=== PATIENT | male | born 1965 | race Caucasian/White ===

== ENCOUNTER 2019-06-15 12:27 | Emergency (ER) | payer OTHER ==
[2019-06-15 12:33] VITALS: BP 130/78; PULSE 109; RESP 18; TEMP 97.4
[2019-06-15] MEDS ORDERED: DIPH,PERTUS(ACELL)TETVAC-LF 0.5 ML VIAL IM ONE (13:12)
--- NOTE | 2019-06-15 13:15 | ED ---
General Adult HPI - General Chief complaint: Extremity Injury, Upper Stated complaint: FB thumb Time Seen by Provider: 06/15/19 12:42 Source: patient Mode of arrival: ambulatory Limitations: no limitations - History of Present Illness Initial comments: Patient is a 54-year-old male presenting to the emergency department with a chief complaint of a foreign body in the finger. Patient reports he was using a nail gun at his house when he accidentally shot a nail through his left thumb. The foreign body appears to be on the distal end of the thumb. Patient denies any numbness or tingling. Patient reports the pain is a 3 and throbbing. Patient is unaware of his tetanus status. Patient has full range of motion of the interphalangeal joint. She denies taking medications alleviate the symptoms. - Related Data Previous Rx's Medication Instructions Recorded Amoxicillin/Potassium Clav 1 tab PO Q12HR #20 tab 06/15/19 [Augmentin 875-125 Tablet] Allergies Allergy/AdvReac Type Severity Reaction Status Date / Time No Known Allergies Allergy Verified 06/15/19 12:33 Review of Systems ROS Statement: Those systems with pertinent positive or pertinent negative responses have been documented in the HPI. ROS Other: All systems not noted in ROS Statement are negative. Past Medical History Past Medical History: Hyperlipidemia, Hypertension History of Any Multi-Drug Resistant Organisms: None Reported Past Surgical History: Appendectomy Smoking Status: Current every day smoker Past Drug Use History: None Reported, Marijuana General Exam - General Exam Comments Initial Comments: General: Well-developed well-nourished distress HEENT: Normocephalic/atraumatic, PERLL, pharynx erythema, swallowing well, EAC no erythema, no exudates, TM clear, no cervical lymph nodes Neck: Supple, nontender, trachea midline Chest/Lungs: Normal respirations, no signs of respiratory distress clear to auscultation bilaterally no wheezes, rales, rhonchi Cardiac: Regular rate and rhythm, normal S1-S2, no murmurs rubs or gallops Abdomen/GI: Soft nontender, bowel sounds equal or quadrant x4, no guarding, no rebound no CVA tenderness Musculoskeletal: 7 cm metal nail punctured through the distal end of the left thumb. No trauma to the nail bed or nail itself. Normal capillary refill in the thumb. Full range of motion. Skin: Warmth, no rashes or lesions, no cyanosis or diaphoresis Neurologic: AAO x 3, CN 2-12 intact, Psychiatric: Mood and affect normal, judgment normal Limitations: no limitations Course Vital Signs 06/15/19 12:32 Temperature 97.4 F L Pulse Rate 109 H Respiratory 18 Rate Blood Pressure 130/78 O2 Sat by Pulse 97 Oximetry Procedures - Forgein Body Removal Soft Tissue Consent Obtained: verbal consent Site: hand (Finger) Amount (mLs): 0 Foreign Body Suspected: Metal (Male) Foreign Body Removed: yes Foreign Body Removal Technique: Other (Pliers) Complications: pain, bleeding Patient Tolerated Procedure: well, no complications Medical Decision Making - Medical Decision Making Patient is a 54-year-old male presenting to the emergency department with a chief complaint of a nail in his finger. Patient has a metal nail going through the palmar aspect of his left distal thumb. Patient is still neurovascularly intact. X-rays are indicative of no bony damage. Appears that nail is only going to soft tissue. I was able to cut the end of the nail and pulled out through the front. The hand was soaked until the skin became very soft. Patient tolerated the procedure well. She given Augmentin and discharged on Augmentin. Patient given Tylenol 3 starter pack. Patient given tetanus shot. Patient advised to follow-up with primary care. Patient advised to return to emergency department if symptoms worsen. Case discussed physician. Disposition Clinical Impression: Foreign body of finger Disposition: HOME SELF-CARE Condition: Stable Instructions (If sedation given, give patient instructions): Soft Tissue Foreign Body (ED) Prescriptions: Amoxicillin/Potassium Clav [Augmentin 875-125 Tablet] 1 tab PO Q12HR #20 tab Is patient prescribed a controlled substance at d/c from ED?: No Referrals: Nan Bocanegra MD [Primary Care Provider] - 1-2 days Time of Disposition: 14:39
--- NOTE | 2019-06-15 13:49 | XR ---
EXAMINATION TYPE: XR finger RT , 3 VIEWS DATE OF EXAM ORDERED: 06/15/2019 HISTORY: fb. COMPARISON: None. FINDINGS: A nail projects through the soft tissues of the distal phalanx of the right IMPRESSION: FOREIGN BODY WITHIN THE SOFT TISSUES OF THE THUMB. REPEAT RADIOGRAPH FOLLOWING REMOVAL WO ULD BE SUGGESTED TO EXCLUDE ADJACENT BONY INJURY.
[2019-06-15] MEDS ORDERED: AMOXIC-POT CLAV 875-125MG 1 EACH TAB PO STA (14:33)
[2019-06-15] MEDS ORDERED: ACET/COD 300 MG/30 MG STARTER PACK 6 TAB BTL PO STA (14:37)
== END 2019-06-15 14:49 | disposition home or self-care (01) ==
LOC: EC 12:27
DX: S60.352A Superficial foreign body of left thumb, initial encounter (principal); F17.200 Nicotine dependence, unspecified, uncomplicated; Z23 Encounter for immunization; W29.4XXA Contact with nail gun, initial encounter; Y93.89 Activity, other specified; Y92.009 Unspecified place in unspecified non-institutional (private) residence as the place of occurrence of the external cause
CPT/HCPCS: 10120; 90471; 90715; 99283

== ENCOUNTER → 2022-05-25 | Outpatient (CLI) | payer OTHER ==
--- NOTE | 2022-05-25 23:00 | CTL ---
EXAMINATION TYPE: CT Low Dose Lung DATE OF EXAM ORDERED: 05/25/2022 HISTORY: Long-term tobacco use. Lung cancer screening CT DLP: 97.[address] CTDI: 2.4 mGy Automated exposure control for dose reduction was used. SCREENING VISIT: Baseline COMPARISON: None TECHNIQUE: Low dose computed tomography scan was performed through the chest at 1 mm thick sections a nd reconstructed images in multiple planes at 1 mm and [address] DIAGNOSTIC QUALITY: Satisfactory FINDINGS: LUNG NODULES: None. LUNGS: COPD: Severity: Moderate To severe Fibrosis: Severity: Minimal Lymph nodes: None Other findings: Small degree of bilateral subareolar flame-shaped gynecomastia RIGHT PLEURAL SPACE: Effusion: None Calcification: None Thickening: None Pneumothorax: None LEFT PLEURAL SPACE: Effusion: None Calcification: None Thickening: None Pneumothorax: None HEART: Heart Size: Normal Coronary Calcification: Severe Pericardial Effusion: None OTHER FINDINGS: Upper abdomen: Small size sliding-type hiatal hernia. Bony thorax: None Supraclavicular region: None Other: None IMPRESSION: Moderate to advanced underlying emphysematous change without suspicious nodules CT LUNG RAD AND CT CHEST RECOMMENDATION: Lung-Rad 1 Negative: Continue annual screening with LDCT in 12 months. S Modifier (other clinically significant findings): S Severe coronary artery calcification, correlate with additional cardiac risk factors advised.
== END | disposition home or self-care (01) ==
LOC: RADCTMAIN 16:42
PROVIDERS: ATTEND Family Medicine
DX: Z12.2 Encounter for screening for malignant neoplasm of respiratory organs (principal); Z87.891 Personal history of nicotine dependence
CPT/HCPCS: 71271

== ENCOUNTER 2025-03-23 12:00 | Day surgery (SDC) | payer OTHER ==
[2025-03-23] MEDS: IV FLUID CONTINUATION 1,000 ML IV ONE (13:14)
[2025-03-23] MEDS: LACTATED RINGERS 1,000 ML BAG IV STA (13:14)
[2025-03-23 13:17] VITALS: TEMP 97.2
[2025-03-23] MEDS ORDERED: PROPOFOL 10 MG/ML 20 ML VIAL IV ONE (13:26)
[2025-03-23 14:08] VITALS: BP 117/80; PULSE 75; RESP 16
--- NOTE | 2025-03-23 21:37 | P.PCN ---
Date of Procedure: 03/23/25 Preoperative Diagnosis: Screening Family history of colon cancer Postoperative Diagnosis: Family history of colon cancer Diverticulosis Poor prep Procedure(s) Performed: Colonoscopy Anesthesia: MAC Surgeon: Lulú Nova Pathology: none sent Condition: stable Disposition: same day Indications for Procedure: 59-year-old male presents today for screening colonoscopy. He has family history of colon cancer with multiple direct and extended relatives. Plan is for colonoscopy for further evaluation. Risks, benefits and alternatives were provided to the patient. All questions answered prior to attending the endoscopy suite. Operative Findings: Diverticulosis Poor prep Description of Procedure: The patient was brought to the endoscopy suite and placed in left lateral decubitus position and adequate sedation was achieved using conscious sedation. Digital rectal exam was performed and mild internal hemorrhoids were palpated. An endoscope was then placed in the rectum and advanced to the cecum as identified by landmarks including the appendiceal orifice and the ileocecal valve. The prep was poor. The colonoscope was then slowly withdrawn, examining for any mucosal abnormalities. The cecum, ascending, transverse, descending and sigmoid colon were visualized with certain areas that were difficult to visualize secondary to the poor preparation. There were no large obvious neoplastic lesions noted throughout the colon. No obvious polyps were noted. Mild amount of diverticulosis noted in the sigmoid colon. Hemostasis was maintained. Retroflexion was performed in the rectum and internal hemorrhoids. Excess air was removed, the colonoscope withdrawn and the procedure terminated. The patient was then transferred to the recovery unit in stable condition. Repeat colonoscopy should be performed in 1 year.
== END 2025-03-23 14:23 | disposition home or self-care (01) ==
LOC: ORWHC2ENDO 12:00
PROVIDERS: ATTEND Surgery
DX: Z12.11 Encounter for screening for malignant neoplasm of colon (principal); Z80.0 Family history of malignant neoplasm of digestive organs; K57.30 Diverticulosis of large intestine without perforation or abscess without bleeding
CPT/HCPCS: 45378; J2704